=== PATIENT | male | born 1975 | race Two or more races ===

== ENCOUNTER 2024-09-10 18:53 | Emergency (ER) | payer OTHER ==
[~2024-09-10] VITALS: Ht 167.6 cm; Wt 104.3 kg
[2024-09-10] MEDS ORDERED: SYNTHROID88 MCG (20:15)
[2024-09-10] MEDS ORDERED: COZAAR50 MG (20:15)
[2024-09-10] MEDS ORDERED: METFORMIN HCL500 M3 (20:15)
[2024-09-10] MEDS ORDERED: CEFTRIAXONE SODIUM 1,000 MG VIAL IM ONE (20:45)
[2024-09-10] MEDS ORDERED: TETANUS & DIPHTHERIA TOX,ADULT 0.5 ML VIAL IM ONE (20:45)
[2024-09-10] MEDS ORDERED: ELVITEG/COB/EMTRI/TENOFO DISOP 1 UDTAB TABLET PO ONE (20:45)
[2024-09-10] MEDS ORDERED: LIDOCAINE HCL 1% 10ML VIAL PERCUT ONE (20:45)
[2024-09-10] MEDS ORDERED: CEPHALEXIN750 MG PO (21:23)
[2024-09-10] MEDS ORDERED: PEPCID AC20 MG PO (21:23)
== END 2024-09-10 21:47 | disposition home or self-care (01) ==
LOC: ER 18:55
DX: S61.421A Laceration with foreign body of right hand, initial encounter (principal); W26.8XXA Contact with other sharp object(s), not elsewhere classified, initial encounter; Y93.89 Activity, other specified; Y92.234 Operating room of hospital as the place of occurrence of the external cause; Z88.8 Allergy status to other drugs, medicaments and biological substances; E03.8 Other specified hypothyroidism; I10 Essential (primary) hypertension